=== PATIENT | female | born 1950 | race Caucasian/White ===

== ENCOUNTER 2023-04-02 15:53 | Emergency (ER) | payer MEDICARE, OTHER ==
[2023-04-02] MEDS ORDERED: Sodium Chloride 0.9% 1,000 ML IV ONE (16:08)
[2023-04-02] MEDS ORDERED: Pantoprazole 40 MG Vial IVPUSH ONE (16:15)
[2023-04-02 16:24] LABS: HEMATOCRIT 36.6 % (37.0-47.0); HEMOGLOBIN 11.2 g/dL (12.0-16.0); MEAN CORPUSCULAR HEMOGLOBIN 25.3 pg (27.0-31.0); MEAN CORPUSCULAR HGB CONC 30.6 g/dL (32.0-36.0); MEAN CORPUSCULAR VOLUME 82.8 fL (82.0-92.0); MEAN PLATELET VOLUME 9.7 fL (7.4-10.4); PLATELET COUNT,PLT 397 10^3/uL (150-400); RED BLOOD CELL COUNT 4.42 10^6/uL (3.80-5.50); RED CELL DISTRIBUTION WIDTH 15.9 % (11.5-14.5); WHITE BLOOD CELL COUNT,WBC 10.97 10^3/uL (5.00-10.00)
[2023-04-02 16:39] LABS: ALANINE AMINOTRANSFERASE,ALT 33 U/L (14-63); ALBUMIN 2.58 g/dL (3.40-5.00); ALKALINE PHOSPHATASE 118 U/L (46-116); ANION GAP 12.2 mmol/L (5-15); ASPARTATE AMNIOTRANSFERASE,AST 21 U/L (15-37); BILIRUBIN TOTAL 0.3 mg/dL (0.2-1.0); BLOOD UREA NITROGEN,BUN 22 mg/dL (7-18); CALCIUM 8.1 mg/dL (8.7-10.3); CARBON DIOXIDE,CO2 30.6 mmol/L (21.0-32.0); CHLORIDE,CL 102 mmol/L (98-107); CREATININE 0.84 mg/dL (0.51-1.17); GLUCOSE RANDOM 161 mg/dL (70-140); LIPASE 19 U/L (73-393); POTASSIUM,K 2.8 mmol/L (3.5-5.1); PROTEIN TOTAL,TP 5.9 g/dL (6.4-8.2); SODIUM,NA 142 mmol/L (136-145)
[2023-04-02 16:41] LABS: ESTIMATED GFR 73 mL/min (>=60)
[2023-04-02 16:46] LABS: INR 1.1 (0.9-1.1); PROTHROMBIN TIME 11.2 SEC (9.2-11.2); PTT,PARTIAL THROMBOPLSTIN TIME 23.6 SEC (22.8-31.4)
[2023-04-02 17:01] LABS: SEG NEUTROPHILS PERCENT MAN 69 % (50-70)
[2023-04-02 17:02] LABS: BAND PERCENT MAN 1 % (4-12); BASOPHILS PERCENT MAN 0 % (0-1); EOSINOPHILS PERCENT MAN 0 % (1-3); LYMPHOCYTES PERCENT MAN 15 % (20-40); MONOCYTES PERCENT MAN 10 % (2-8)
[2023-04-02 17:03] LABS: BLASTS PERCENT MAN 1; MYELOCYTE PERCENT MAN 4
[2023-04-03 04:03] LABS: SLIDE REVIEW YES
[2023-04-03 04:05] LABS: PLATELET COUNT ESTIMATE ADEQUATE
== END 2023-04-02 18:05 | disposition home or self-care (01) ==
LOC: KA.ED 15:53
DX: K92.0 Hematemesis (principal); K92.1 Melena; D50.0 Iron deficiency anemia secondary to blood loss (chronic); K21.9 Gastro-esophageal reflux disease without esophagitis; Z79.899 Other long term (current) drug therapy
CPT/HCPCS: 36415; 80053; 82272; 83690; 85025; 85610; 85730; 96361; 96374; 99284; 99285-25; C9113; J7030